=== PATIENT | female | born 1950 ===

== ENCOUNTER 2018-09-18 11:23 | Emergency (ER) | payer OTHER ==
[~2018-09-18] VITALS: Ht 154.9 cm; Wt 56.7 kg
[~2018-09-18 11:23] MED LIST: MUPIROCIN15 GM TP
== END 2018-09-18 18:57 | disposition home or self-care (01) ==
LOC: ER 11:23
DX: R10.31 Right lower quadrant pain (principal); C78.7 Secondary malignant neoplasm of liver and intrahepatic bile duct; C22.7 Other specified carcinomas of liver